=== PATIENT | female | born 1980 ===

== ENCOUNTER → 2020-03-23 09:54 | Outpatient (BNVA) | payer OTHER, SELFPAY | PROVIDERS: PCP Internal Medicine; Referring Provider Internal Medicine; Visit Provider Advanced Practice Midwife | DX: Z76.89 Persons encountering health services in other specified circumstances (principal) ==

== ENCOUNTER 2020-03-23 11:14 | Outpatient (REF) | payer OTHER, SELFPAY ==
[2020-03-31 21:37] LABS: HPV mRNA E6/E7 Not Detected (Not Detected)
== END 2020-03-23 11:15 | disposition home or self-care (01) ==
LOC: HO.LNP 11:14
PROVIDERS: Visit Provider Advanced Practice Midwife
DX: N63.0 Unspecified lump in unspecified breast (principal)
CPT/HCPCS: 87624; 88142

== ENCOUNTER 2020-03-26 11:36 | Outpatient (REF) | payer OTHER, SELFPAY | END 2020-03-26 11:37 | disposition home or self-care (01) | LOC: HO.LAB 11:36 | PROVIDERS: Visit Provider Advanced Practice Midwife | DX: Z13.89 Encounter for screening for other disorder (principal) ==

== ENCOUNTER 2020-03-30 13:47 | Outpatient (REF) | payer OTHER, SELFPAY ==
--- NOTE | 2020-03-30 | MM_ITS ---
EXAMINATION: MM DIAGNOSTIC DIGITAL BREAST TOMOSYNTHESIS, BILATERAL US DIAGNOSTIC ULTRASOUND BREAST, BILATERAL CLINICAL INFORMATION: Due for yearly exam. Clinical exam notes bilateral palpable findings. Prior history reduction mammoplasty 2004. Family history breast cancer in niece. The lifetime risk of breast cancer based on the Tyrer-Cuzick Model is 14%. COMPARISON: Mammography: 09/04/2018, 08/15/2017, 05/18/2009 TECHNIQUE: Digital breast tomosynthesis is performed in both the craniocaudal and mediolateral oblique views along with computer-aided detection (CAD). Synthesized 2D images are generated from the tomosynthesis. Ultrasound bilateral breasts is performed using grayscale imaging and color Doppler without and with harmonics. Exam is targeted to the areas of clinical concern, left breast 6:00 through 11:00 position, or right breast 3:00 through 6:00 position and superior to right nipple. FINDINGS: The breasts are almost entirely fatty (ACR BI-RADS breast composition Category a). Background stromal markings are stable. There is minor scarring and chronic bilateral benign calcifications similar to prior exams and consistent with the remote reduction mammoplasty. Neither breast shows interval mass or architectural abnormality. Again, the right breast has chronic bulky masslike consolidation in area of prior fat necrosis which has contracted over time and corresponds to area of palpable concern anterior 12:00 position. This measures approximately 2.7 x 2.3 x 2.2 cm. Prior measurements in 2008 were 4.0 x 3.5 x 3.8 cm. Again, there are coarse and fine calcifications 12:00 through 2:00 left breast also decreased since 2008. No interval suspicious calcifications in either breast. Ultrasound left breast demonstrates no cystic or solid mass or architectural abnormality. No focal duct ectasia. No skin thickening or edema tracking in soft tissue planes. There is no ultrasound correlate for clinical concern. Ultrasound right breast demonstrates strong posterior acoustic shadowing 12:00 position 1 cm from nipple corresponding to the palpable concern and benign laura fat necrosis on mammography. Remainder of the right breast imaged by ultrasound shows no cystic or solid mass, architectural abnormality, or focal duct ectasia. No skin thickening or edema tracking in soft tissue planes. Results are discussed with the patient at time of visit. IMPRESSION: 1. No mammographic evidence of malignancy. No significant changes from prior studies. 2. Bilateral targeted ultrasound unremarkable. 3. Palpable concern superior to right nipple corresponds to a chronic benign heavily calcified area of prior fat necrosis. No imaging correlate for other sites of palpable concern. ASSESSMENT: BI-RADS 2: Benign RECOMMENDATION: 1. If there is still clinical concern for palpable findings, further evaluation may be considered with surgical consult. Decision to proceed with biopsy should be based on clinical grounds and degree of clinical concern. 2. Otherwise, routine annual screening mammography. This patient's information was entered into a reminder system with a target due date for their next mammogram.
== END 2020-03-30 13:48 | disposition home or self-care (01) ==
LOC: HO.MAMMO 13:47
PROVIDERS: PCP Internal Medicine; Visit Provider Advanced Practice Midwife
DX: N63.23 Unspecified lump in the left breast, lower outer quadrant (principal)
CPT/HCPCS: 76641; 77062; 77066

== ENCOUNTER 2020-08-18 22:08 | Emergency (ER) | payer OTHER, SELFPAY ==
[2020-08-18 23:25] VITALS: BP 150/83; PULSE 75; RESP 16; TEMP 36.4; O2SAT 97; BMI 31.1
[2020-08-18 23:57] LABS: Glucose Urine UA NEG (NEG); Leukocyte Esterase Urine NEG (NEG); Nitrite Urine NEG (NEG); Specific Gravity - Urine 1.025 (1.005-1.025); Urine Blood 2+ (NEG); Urine Ketones NEG (NEG); Urine Protein NEG (NEG-TRACE)
[2020-08-18 23:59] LABS: Appearance Urine CLEAR; Color Urine YELLOW
[2020-08-19 00:06] LABS: UPreg QC Valid YES; Urine Pregnancy NEGATIVE (NEGATIVE)
[2020-08-19 00:11] LABS: Bacteria Urine 1+ /LPF; Mucus Urine 1+ /LPF; Squamous Epithelial Cell Urine 1+ /LPF
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
[2020-08-19] MEDS: Ketorolac Tromethamine 15 MG/ML VIAL IM (01:08)
[2020-08-19] MEDS: Acetaminophen 325 MG TABLET 975 MG PO (01:10)
[2020-08-19] MEDS: Bacitracin Oint 14 GM TUBE 1 APPL TOPICAL (01:17)
== END 2020-08-19 01:45 | disposition home or self-care (01) ==
PROVIDERS: Emergency Provider Student in an Organized Health Care Education/Training Program
DX: T20.19XA Burn of first degree of multiple sites of head, face, and neck, initial encounter (principal); T31.0 Burns involving less than 10% of body surface; V43.62XA Car passenger injured in collision with other type car in traffic accident, initial encounter; W22.12XA Striking against or struck by front passenger side automobile airbag, initial encounter; Y93.89 Activity, other specified; Y92.414 Local residential or business street as the place of occurrence of the external cause; Y99.9 Unspecified external cause status
CPT/HCPCS: 81001; 81025; 90471; 90715; 96372; 99284; J1885

== ENCOUNTER 2020-08-31 12:07 | Outpatient (REF) | payer OTHER, SELFPAY ==
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
== END 2020-08-31 12:08 | disposition home or self-care (01) ==
LOC: HO.XRAY 12:07
PROVIDERS: PCP Internal Medicine; Visit Provider Nurse Practitioner Family
DX: M54.2 Cervicalgia (principal); M54.5 Low back pain; M25.511 Pain in right shoulder; V89.2XXA Person injured in unspecified motor-vehicle accident, traffic, initial encounter
CPT/HCPCS: 70360; 72100; 73030

== ENCOUNTER 2020-09-14 13:14 | Outpatient (REF) | payer OTHER, SELFPAY ==
[2020-09-14 13:27] LABS: COVID-19 Test Positive (Negative); IDNOW Serial# 08D9AD1C
== END 2020-09-14 13:15 | disposition home or self-care (01) ==
LOC: HO.LAB 13:14
PROVIDERS: Visit Provider Internal Medicine
DX: Z20.822 Contact with and (suspected) exposure to COVID-19 (principal)
CPT/HCPCS: 36415; 87635; C9803

== ENCOUNTER 2020-09-15 20:04 | Emergency (ER) | payer OTHER, SELFPAY ==
--- NOTE | ~2020-09-15 | XR_ITS ---
EXAMINATION: XR CHEST CLINICAL INFORMATION: Cough COMPARISON: None TECHNIQUE: Frontal view of the chest was obtained. FINDINGS: There is some right mid lung linear atelectasis present. Otherwise, no significant abnormality is noted involving the heart, lungs, mediastinum, bony thorax or soft tissues. XR/XR chest 1V IMPRESSION: Unremarkable examination. Right midlung atelectasis.
[2020-09-15 21:19] VITALS: BP 122/81; PULSE 109; PULSE 113; RESP 17; RESP 18; TEMP 37.6; O2SAT 97; BMI 32.0
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
[2020-09-15] MEDS: 0.9 % Sodium Chloride 1,000 ML 999 ML IV (22:11)
[2020-09-15 22:17] LABS: Basophils Percent Auto 0.2 % (0-2); Hematocrit 39.9 % (37-47); Hemoglobin 13.2 g/dl (12.0-16.0); Imm Gran Abs Auto 0.01 X10*3/uL (0.00-0.03); Imm Gran Pct Auto 0.2 % (0.0-0.4); Lymphocytes Absolute Auto 1.2 X10*3/uL (1.2-4.9); Lymphocytes Percent Auto 25.9 % (20-40); MANUAL DIFF FLAG NO; Mean Corpuscular HGB Conc 33.1 g/dl (31.0-35.0); Mean Corpuscular Hemoglobin 29.8 pg (27.0-33.0); Mean Corpuscular Volume 90.1 fL (80-98); Mean Platelet Volume 9.1 fL (9.4-12.3); Monocytes Absolute Auto 0.5 X10*3/uL (0.1-1.2); Monocytes Percent Auto 10.6 % (2-11); Neutrophils Absolute Auto 2.8 X10*3/uL (2.0-8.3); Neutrophils Percent Auto 63.1 % (45-73); Platelet Count 236 X10*3/uL (160-400); Red Blood Count 4.43 X10*6/uL (4.20-5.50); Red Cell Distribution Width 12.6 % (11.0-16.0); White Blood Count 4.5 X10*3/uL (4.8-10.8)
[2020-09-15 22:22] LABS: Glucose Urine UA NEG (NEG); Leukocyte Esterase Urine NEG (NEG); Nitrite Urine NEG (NEG); Specific Gravity - Urine >= 1.030 (1.005-1.025); Urine Blood 3+ (NEG); Urine Ketones 15 MG/DL (NEG); Urine Protein NEG (NEG-TRACE)
[2020-09-15 22:28] LABS: Appearance Urine CLEAR; Color Urine YELLOW
[2020-09-15 22:30] LABS: UPreg QC Valid YES; Urine Pregnancy NEGATIVE (NEGATIVE)
[2020-09-15 22:38] LABS: D Dimer < 200 NG/ML
[2020-09-15 22:39] LABS: Alanine Aminotransferase 60 U/L (0-31); Alkaline Phosphatase 72 U/L (39-117); Anion Gap 14 (12-20); Aspartate Amino Transferase 36 U/L (5-31); Bilirubin Total 0.4 mg/dL (0.0-1.0); Blood Urea Nitrogen 9 mg/dL (9-16); Calcium 8.3 mg/dL (8.4-10.2); Carbon Dioxide 25 mmol/L (22-29); Chloride 102 mmol/L (96-108); Creatinine Clr Calc Pharmacy 90.4; Estimated Glomerular Filt Rate > 60; Glucose Random 106 mg/dL (60-115); Potassium 3.4 mmol/L (3.3-5.1); Sodium 138 mmol/L (135-145); Total Protein 7.6 g/dL (6.5-8.0)
[2020-09-15 22:42] LABS: Bacteria Urine 2+ /LPF; Mucus Urine 2+ /LPF; Squamous Epithelial Cell Urine 2+ /LPF
== END 2020-09-15 23:47 | disposition home or self-care (01) ==
PROVIDERS: Emergency Provider Student in an Organized Health Care Education/Training Program; PCP Internal Medicine
DX: U07.1 COVID-19 (principal); A08.39 Other viral enteritis; E86.0 Dehydration
CPT/HCPCS: 36415; 71045; 80053; 81001; 81025; 85025; 85379; 96360; 99284

== ENCOUNTER 2020-09-29 12:08 | Outpatient (REF) | payer OTHER, SELFPAY | END 2020-09-29 12:09 | disposition home or self-care (01) | LOC: HO.LAB 12:08 | PROVIDERS: Visit Provider Internal Medicine | DX: Z20.822 Contact with and (suspected) exposure to COVID-19 (principal) | CPT/HCPCS: C9803; U0003; U0005 ==

== ENCOUNTER 2021-02-16 13:07 | Outpatient (REF) | payer OTHER, SELFPAY ==
[2021-02-16 14:20] LABS: MANUAL DIFF FLAG NO
[2021-02-16 14:23] LABS: Basophils Percent Auto 0.6 % (0-2); Eosinophils Absolute Auto 0.1 X10*3/uL (0.0-0.4); Eosinophils Percent Auto 1.6 % (0-4); Hematocrit 40.1 % (37-47); Hemoglobin 13.1 g/dl (12.0-16.0); Imm Gran Abs Auto 0.02 X10*3/uL (0.00-0.03); Imm Gran Pct Auto 0.3 % (0.0-0.4); Lymphocytes Absolute Auto 2.5 X10*3/uL (1.2-4.9); Lymphocytes Percent Auto 34.6 % (20-40); Mean Corpuscular HGB Conc 32.7 g/dl (31.0-35.0); Mean Corpuscular Hemoglobin 29.7 pg (27.0-33.0); Mean Corpuscular Volume 90.9 fL (80-98); Mean Platelet Volume 10.9 fL (9.4-12.3); Monocytes Absolute Auto 0.5 X10*3/uL (0.1-1.2); Monocytes Percent Auto 6.6 % (2-11); Neutrophils Percent Auto 56.3 % (45-73); Platelet Count 192 X10*3/uL (160-400); Red Blood Count 4.41 X10*6/uL (4.20-5.50); Red Cell Distribution Width 12.8 % (11.0-16.0); White Blood Count 7.1 X10*3/uL (4.8-10.8)
[2021-02-16 14:48] LABS: Alanine Aminotransferase 41 U/L (0-31); Albumin Level 4.1 g/dL (3.5-5.0); Alkaline Phosphatase 66 U/L (39-117); Anion Gap 13 (12-20); Aspartate Amino Transferase 23 U/L (5-31); Bilirubin Total 0.2 mg/dL (0.0-1.0); Blood Urea Nitrogen 11 mg/dL (9-16); Calcium 9.4 mg/dL (8.4-10.2); Carbon Dioxide 26 mmol/L (22-29); Chloride 107 mmol/L (96-108); Cholesterol 172 mg/dL; Estimated Glomerular Filt Rate > 60; Glucose Fasting 102 mg/dL (60-99); HDL Cholesterol 49 mg/dL; LDL Cholesterol Calculated 92 mg/dl; Sodium 142 mmol/L (135-145); Total Protein 7.3 g/dL (6.5-8.0); Triglycerides 158 mg/dL
[2021-02-17 04:25] LABS: HBsAGNum1 0.25 S/CO (0.00-0.99); Hepatitis B Core Antibody Nonreactive (Nonreactive); Hepatitis B Surface Antigen Negative (Negative); ~Hepatitis B Surface Antibody NONREACTIVE (Nonreactive)
[2021-02-17 09:51] LABS: Mumps Virus IgG Antibody <9.00 AU/mL; Rubella IgG Antibody <0.90 Index; Rubeola IgG (Measles) >300.00 AU/mL
[2021-02-19 14:52] LABS: TS Negative Control Passed; TS Panel A 0; TS Panel B 0; TS Positive Control Passed; TSpotTB Negative (SeeBelow)
== END 2021-02-16 13:08 | disposition home or self-care (01) ==
LOC: HO.LAB 13:07
PROVIDERS: Nurse Practitioner Family; PCP Internal Medicine; Visit Provider Internal Medicine
DX: Z01.84 Encounter for antibody response examination (principal); Z11.1 Encounter for screening for respiratory tuberculosis
CPT/HCPCS: 36415; 80053; 80061; 85025; 86481; 86704; 86706; 86735; 86762; 86765; 86787; 87340

== ENCOUNTER 2021-09-16 08:45 | Outpatient (REF) | payer OTHER, SELFPAY ==
--- NOTE | ~2021-09-16 | XR_ITS ---
EXAMINATION: CHEST. LEFT ELBOW. CLINICAL INFORMATION: Dyspnea, short of breath. COMPARISON: None TECHNIQUE: Chest 2 views. Left elbow 4 views. FINDINGS: CHEST: Both lungs are hypoexpanded but clear of acute process. The heart size and pulmonary vascularity is normal. No gross bony abnormality seen. LEFT ELBOW: There is no visible acute fracture, dislocation or subluxation seen. No abnormal joint effusion seen. XR/XR chest 2V IMPRESSION: Unremarkable chest exam. Unremarkable left elbow exam.
--- NOTE | ~2021-09-16 | XR_ITS ---
EXAMINATION: CHEST. LEFT ELBOW. CLINICAL INFORMATION: Dyspnea, short of breath. COMPARISON: None TECHNIQUE: Chest 2 views. Left elbow 4 views. FINDINGS: CHEST: Both lungs are hypoexpanded but clear of acute process. The heart size and pulmonary vascularity is normal. No gross bony abnormality seen. LEFT ELBOW: There is no visible acute fracture, dislocation or subluxation seen. No abnormal joint effusion seen. XR/XR elbow LT 2V IMPRESSION: Unremarkable chest exam. Unremarkable left elbow exam.
[2021-09-16 10:17] LABS: Alanine Aminotransferase 38 U/L (0-31); Albumin Level 4.4 g/dL (3.5-5.0); Alkaline Phosphatase 71 U/L (39-117); Anion Gap 11 (12-20); Aspartate Amino Transferase 21 U/L (5-31); Bilirubin Total 0.3 mg/dL (0.0-1.0); Blood Urea Nitrogen 16 mg/dL (9-16); Calcium 9.4 mg/dL (8.4-10.2); Carbon Dioxide 27 mmol/L (22-29); Chloride 106 mmol/L (96-108); Estimated Glomerular Filt Rate > 60; Glucose Fasting 97 mg/dL (60-99); Potassium 4.2 mmol/L (3.3-5.1); Sodium 140 mmol/L (135-145)
[2021-09-27 12:46] LABS: Chlorpropamide None Detected; Glimepiride None Detected; Glipizide None Detected; Glyburide None Detected; Nateglinide None Detected; Pioglitazone None Detected; Repaglinide None Detected; Rosiglitazone None Detected; Tolazamide None Detected; Tolbutamide None Detected
== END 2021-09-16 08:46 | disposition home or self-care (01) ==
LOC: HO.LAB 08:45
PROVIDERS: PCP Internal Medicine; Visit Provider Internal Medicine
DX: R06.00 Dyspnea, unspecified (principal); M25.522 Pain in left elbow; E16.2 Hypoglycemia, unspecified
CPT/HCPCS: 36415; 71046; 73070; 80053; 80337

== ENCOUNTER 2021-09-26 10:22 | Outpatient (REF) | payer OTHER, SELFPAY ==
--- NOTE | ~2021-09-26 | MM_ITS ---
EXAMINATION: MM SCREENING DIGITAL BREAST TOMOSYNTHESIS, BILATERAL CLINICAL INFORMATION: Screening. Asymptomatic. Remote reduction mammoplasty, 2005. The lifetime risk of breast cancer based on the Tyrer-Cuzick Model is 12%. COMPARISON: Mammography: 03/30/2020, 09/04/2018, 08/15/2017, 05/18/2009 TECHNIQUE: Digital breast tomosynthesis is performed in both the craniocaudal and mediolateral oblique views along with computer-aided detection (CAD). Synthesized 2D images are generated from the tomosynthesis. FINDINGS: The breasts are almost entirely fatty (ACR BI-RADS breast composition Category a). Background stromal markings are stable. There is minor scarring and stable benign coarse and dystrophic calcifications consistent with prior reduction mammoplasty. There is no interval mass or architectural abnormality or abnormal calcifications. The axilla are unremarkable. MM/MM tomosynthesis screening BI IMPRESSION: -No mammographic evidence of malignancy. -Chronic post surgical changes. ASSESSMENT: BI-RADS 2: Benign RECOMMENDATION: Routine annual mammography screening. This patient's information was entered into a reminder system with a target due date for their next mammogram.
== END 2021-09-26 10:23 | disposition home or self-care (01) ==
LOC: HO.MAMMO 10:22
PROVIDERS: Visit Provider Internal Medicine
DX: Z12.31 Encounter for screening mammogram for malignant neoplasm of breast (principal)
CPT/HCPCS: 77063; 77067

== ENCOUNTER 2021-10-20 16:19 | Emergency (ER) | payer OTHER, SELFPAY ==
[2021-10-20 16:49] VITALS: BP 148/99; PULSE 78; RESP 18; TEMP 36.5; O2SAT 99; BMI 32.8
[2021-10-20 17:28] LABS: Influenza A Negative (Negative); Influenza B2 Negative (Negative)
[2021-10-20 17:31] LABS: COVID-19 Test Negative (Negative); IDNOW Serial# 9DB6401D
[2021-10-20 18:46] VITALS: BP 137/89; PULSE 72; RESP 18; O2SAT 99
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
[2021-10-20 19:46] VITALS: BP 123/81; PULSE 75; RESP 16; O2SAT 99
== END 2021-10-20 19:47 | disposition home or self-care (01) ==
PROVIDERS: Emergency Provider Emergency Medicine; PCP Internal Medicine
DX: J06.9 Acute upper respiratory infection, unspecified (principal); Z20.822 Contact with and (suspected) exposure to COVID-19
CPT/HCPCS: 87502; 87635; 99283

== ENCOUNTER 2021-12-27 09:34 | Outpatient (REF) | payer OTHER, SELFPAY ==
[2021-12-27 11:46] LABS: Alanine Aminotransferase 43 U/L (0-31); Albumin Level 4.2 g/dL (3.5-5.0); Alkaline Phosphatase 71 U/L (39-117); Anion Gap 10 (12-20); Aspartate Amino Transferase 23 U/L (5-31); Bilirubin Total 0.3 mg/dL (0.0-1.0); Blood Urea Nitrogen 12 mg/dL (9-16); Calcium 9.2 mg/dL (8.4-10.2); Carbon Dioxide 27 mmol/L (22-29); Chloride 107 mmol/L (96-108); Cholesterol 178 mg/dL; Estimated Glomerular Filt Rate > 60; Glucose Fasting 93 mg/dL (60-99); HDL Cholesterol 49 mg/dL; LDL Cholesterol Calculated 103 mg/dl; Potassium 4.1 mmol/L (3.3-5.1); Sodium 140 mmol/L (135-145); Total Protein 7.6 g/dL (6.5-8.0); Triglycerides 134 mg/dL
== END 2021-12-27 09:35 | disposition home or self-care (01) ==
LOC: HO.LAB 09:34
PROVIDERS: PCP Internal Medicine; Visit Provider Internal Medicine
DX: Z00.00 Encounter for general adult medical examination without abnormal findings (principal)
CPT/HCPCS: 36415; 80053; 80061

== ENCOUNTER 2022-02-01 11:09 | Outpatient (REF) | payer OTHER, SELFPAY ==
[2022-02-01 12:34] LABS: Influenza A PCR NEGATIVE (Negative); Influenza B PCR NEGATIVE (Negative); Resp Syncy Virus RNA Qual PCR NEGATIVE (Negative); SARS COV2 PCR INHOUSE NEGATIVE (Negative)
== END 2022-02-01 11:10 | disposition home or self-care (01) ==
LOC: HO.LNP 11:09
PROVIDERS: Visit Provider Family Medicine
DX: Z20.822 Contact with and (suspected) exposure to COVID-19 (principal); B34.9 Viral infection, unspecified
CPT/HCPCS: 0241U

== ENCOUNTER 2022-05-16 11:02 | Emergency (ER) | payer OTHER, SELFPAY ==
--- NOTE | ~2022-05-16 | XR_ITS ---
EXAMINATION: XR CHEST CLINICAL INFORMATION: Shortness of breath COMPARISON: 09/16/2021 TECHNIQUE: 2 views of the chest were obtained. FINDINGS: Normal symmetric lung volumes. No parenchymal consolidation. No pleural effusion. No pneumothorax. Cardiomediastinal silhouette and pulmonary vascularity are within normal limits. No acute osseous abnormalities. XR/XR chest 2V IMPRESSION: No acute findings
[2022-05-16 11:23] VITALS: BP 113/81; PULSE 88; RESP 18; TEMP 36.6; O2SAT 99; BMI 33.5
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
[2022-05-16 12:35] LABS: Influenza A PCR NEGATIVE (Negative); Influenza B PCR NEGATIVE (Negative); Resp Syncy Virus RNA Qual PCR NEGATIVE (Negative); SARS COV2 PCR INHOUSE NEGATIVE (Negative)
--- OUTSIDE RECORDS SUMMARY | 2022-05-16 13:59 | XMS_ITS | Continuity of Care Document ---
:1980 Author Organization [facility] Address [address] [place] [id number]- Care Team Providers Name Role Phone Alexandre Stout MD, Aydee Smith Primary Care Physician Encounter [facility] Date(s): 11/30/21 - 12/30/21 [facility] [address] [place] [id number] Attending Physician: Durga Cerda Admitting Physician: Durga Cerda Referring Physician: AdmtrDurga Allergies, Adverse Reactions, Alerts No Known Allergies Medications Omeprazole By Mouth, Daily, PRN, 0 Refills, Maintenance, 11/30/21 10:48:00 EDT, Partial fill upon patient request if the prescription is for a schedule II opioid drug. Start Date: 11/30/21 Status: Ordered
--- OUTSIDE RECORDS SUMMARY | 2022-05-16 13:59 | XMS_ITS | Continuity of Care Document ---
:1980 Author Organization [facility] Address [address] [place] [id number]- Care Team Providers Name Role Phone Po Aurelia ESPINOSA Primary Care Physician Encounter [facility] Date(s): 07/11/21 - 08/10/21 [facility] [address] [place] [id number] Attending Physician: Durga Cerda Admitting Physician: Durga Cerda Referring Physician: Durga Cerda
--- OUTSIDE RECORDS SUMMARY | 2022-05-16 14:00 | XMS_ITS | Continuity of Care Document ---
:1980 Author Organization [facility] Address [address] [place] [id number]- Care Team Providers Name Role Phone Aydee Dong MD Primary Care Physician Encounter [facility] Date(s): 07/11/21 - 02/22/22 [facility] [address] [place], [place] [address] Discharge Disposition: A-D/C Home Attending Physician: Karen Russo MD Admitting Physician: Karen Russo MD Referring Physician: Aydee Dong MD Allergies, Adverse Reactions, Alerts No Known Allergies Medications Omeprazole By Mouth, Daily, PRN, 0 Refills, Maintenance, 11/30/21 10:48:00 EDT, Partial fill upon patient request if the prescription is for a schedule II opioid drug. Start Date: 11/30/21 Status: Ordered Care Team PersonnelName: Aydee Dong MD Address: [address] [place] [address]-
== END 2022-05-16 15:27 | disposition home or self-care (01) ==
PROVIDERS: Student in an Organized Health Care Education/Training Program; Emergency Provider Emergency Medicine; PCP Internal Medicine
DX: J06.9 Acute upper respiratory infection, unspecified (principal); R06.02 Shortness of breath; R05.9 Cough, unspecified; Z20.822 Contact with and (suspected) exposure to COVID-19; Z79.899 Other long term (current) drug therapy
CPT/HCPCS: 0241U; 71046; 99282; 99283

== ENCOUNTER 2022-08-21 12:56 | Outpatient (REF) | payer OTHER, SELFPAY ==
[2022-08-21 18:00] LABS: CT PCR NOT DETECTED (Not Detect.); NG PCR NOT DETECTED (Not Detect.)
== END 2022-08-21 12:57 | disposition home or self-care (01) ==
LOC: HO.LNP 12:56
PROVIDERS: PCP Internal Medicine; Visit Provider Advanced Practice Midwife
DX: Z20.2 Contact with and (suspected) exposure to infections with a predominantly sexual mode of transmission (principal); N92.6 Irregular menstruation, unspecified
CPT/HCPCS: 0353U

== ENCOUNTER → 2022-09-07 15:53 | Outpatient (BNVA) | payer OTHER, SELFPAY | PROVIDERS: PCP Internal Medicine; Visit Provider Nurse Practitioner Family | DX: K21.9 Gastro-esophageal reflux disease without esophagitis (principal); K58.2 Mixed irritable bowel syndrome; R14.0 Abdominal distension (gaseous) | CPT/HCPCS: 99202 ==

== ENCOUNTER 2022-09-08 11:38 | Outpatient (REF) | payer OTHER, SELFPAY ==
[2022-09-08 12:28] LABS: Estimated Average Glucose 143 mg/dL; Hemoglobin A1c % 6.6 %
[2022-09-08 12:58] LABS: Syphilis Screen Nonreactive (Nonreactive)
[2022-09-08 13:07] LABS: Alanine Aminotransferase 85 U/L (0-31); Albumin Level 4.3 g/dL (3.5-5.0); Alkaline Phosphatase 83 U/L (39-117); Aspartate Amino Transferase 49 U/L (5-31); Bilirubin Direct < 0.2 mg/dL (0.0-0.5); Bilirubin Total 0.3 mg/dL (0.0-1.0); Lipase 38 U/L (8-78); Total Protein 7.5 g/dL (6.5-8.0)
[2022-09-08 13:10] LABS: Folate 14.4 ng/mL (> or = 4.0); TSH reflex Free T4 0.73 uIU/mL (0.32-4.0); Vitamin B12 472 pg/mL (200-900)
[2022-09-09 11:32] LABS: H Pylori Breath Test Positive (Negative)
[2022-09-11 08:39] LABS: HBc Num1 0.15 S/CO (0.00-0.79); HIV AB/AG Nonreactive (Nonreactive); HIV Num 1 0.12 S/CO (0.00-0.99); Hepatitis B Core Antibody Nonreactive (Nonreactive); ~HepC Num1 0.14 S/CO (0.00-0.79); ~Hepatitis C Antibody Nonreactive (Nonreactive)
[2022-09-11 17:44] LABS: Transglutaminase Ab IgG <1.0 U/mL; Transglutaminase IgA <1.0 U/mL
[2022-09-14 07:58] LABS: Vitamin D 25-OH, D2 <4 ng/mL; Vitamin D 25-OH, D3 15 ng/mL; Vitamin D 25-OH, Total 15 ng/mL (30-100)
== END 2022-09-08 11:39 | disposition home or self-care (01) ==
LOC: HO.LAB 11:38
PROVIDERS: Advanced Practice Midwife; PCP Internal Medicine; Visit Provider Nurse Practitioner Family
DX: Z11.4 Encounter for screening for human immunodeficiency virus [HIV] (principal); R19.7 Diarrhea, unspecified; R10.9 Unspecified abdominal pain; K59.00 Constipation, unspecified; E55.9 Vitamin D deficiency, unspecified; Z20.2 Contact with and (suspected) exposure to infections with a predominantly sexual mode of transmission; Z83.3 Family history of diabetes mellitus
CPT/HCPCS: 36415; 80076; 82306; 82607; 82746; 83013; 83036; 83690; 84443; 86364; 86704; 86780; 86803; 87389; 99211

== ENCOUNTER 2022-10-02 09:49 | Outpatient (REF) | payer OTHER, SELFPAY ==
--- NOTE | ~2022-10-02 | MM_ITS ---
EXAMINATION: MM SCREENING DIGITAL BREAST TOMOSYNTHESIS, BILATERAL CLINICAL INFORMATION: Screening. Asymptomatic. Prior remote reduction mammoplasty, 2004. The lifetime risk of breast cancer based on the Tyrer-Cuzick Model is 7%. COMPARISON: Multiple prior exams, most recent 09/26/2021 TECHNIQUE: Digital breast tomosynthesis is performed in both the craniocaudal and mediolateral oblique views along with computer-aided detection (CAD). Synthesized 2D images are generated from the tomosynthesis. FINDINGS: The breasts are almost entirely fatty (ACR BI-RADS breast composition Category a). There is minor bilateral scarring and benign bilateral coarse and dystrophic calcifications consistent with the prior remote reduction mammoplasty. No interval architectural abnormality or developing density. There are no significant masses, abnormal calcifications, or other abnormalities. The axilla are unremarkable. MM/MM tomosynthesis screening BI IMPRESSION: No mammographic evidence of malignancy. ASSESSMENT: BI-RADS 2: Benign RECOMMENDATION: Routine annual mammography screening. This patient's information was entered into a reminder system with a target due date for their next mammogram.
== END 2022-10-02 09:50 | disposition home or self-care (01) ==
LOC: HO.MAMMO 09:49
PROVIDERS: PCP Internal Medicine; Visit Provider Internal Medicine
DX: Z12.31 Encounter for screening mammogram for malignant neoplasm of breast (principal)
CPT/HCPCS: 77063; 77067

== ENCOUNTER 2023-01-04 10:01 | Outpatient (AMB) | payer OTHER, SELFPAY ==
[2023-01-04 10:05] VITALS: BP 118/70; BMI 33.8
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
== END 2023-01-04 10:42 | disposition home or self-care (01) ==
PROVIDERS: PCP Internal Medicine; Visit Provider Internal Medicine
DX: Z00.00 Encounter for general adult medical examination without abnormal findings (principal)
CPT/HCPCS: 99396

== ENCOUNTER 2023-01-04 10:34 | Outpatient (REF) | payer OTHER, SELFPAY ==
--- NOTE | 2023-01-04 10:42 | ECG_ITS ---
Test Reason : CHEST PAIN Blood Pressure : / mmHG Vent. Rate : 055 BPM Atrial Rate : 055 BPM P-R Int : 142 ms QRS Dur : 074 ms QT Int : 424 ms P-R-T Axes : 021 003 030 degrees QTc Int : 405 ms Sinus bradycardia with sinus arrhythmia Otherwise normal ECG When compared with ECG of 03-OCT-2015 04:44, No significant change was found Referred By: Aydee Stout Electronically Signed By:DALE SAXENA MD
[2023-01-04 13:27] LABS: Alanine Aminotransferase 68 U/L (0-31); Albumin Level 4.1 g/dL (3.5-5.0); Alkaline Phosphatase 82 U/L (39-117); Anion Gap 16 (12-20); Aspartate Amino Transferase 43 U/L (5-31); Bilirubin Total 0.3 mg/dL (0.0-1.0); Blood Urea Nitrogen 10 mg/dL (9-16); Calcium 9.6 mg/dL (8.4-10.2); Carbon Dioxide 22 mmol/L (22-29); Chloride 106 mmol/L (96-108); Cholesterol 197 mg/dL; Estimated Glomerular Filt Rate > 60; Glucose Fasting 100 mg/dL (60-99); HDL Cholesterol 59 mg/dL; LDL Cholesterol Calculated 110 mg/dl; Potassium 4.2 mmol/L (3.3-5.1); Sodium 140 mmol/L (135-145); Total Protein 7.9 g/dL (6.5-8.0); Triglycerides 144 mg/dL
[2023-01-04 13:46] LABS: Thyroid Stimulating Hormone 1.09 uIU/mL (0.32-4.0)
== END 2023-01-04 10:35 | disposition home or self-care (01) ==
LOC: HO.LAB 10:34
PROVIDERS: PCP Internal Medicine; Visit Provider Internal Medicine
DX: R07.9 Chest pain, unspecified (principal); E78.5 Hyperlipidemia, unspecified; K21.9 Gastro-esophageal reflux disease without esophagitis; E66.9 Obesity, unspecified; Z68.31 Body mass index [BMI] 31.0-31.9, adult; E55.9 Vitamin D deficiency, unspecified
CPT/HCPCS: 36415; 80053; 80061; 82306; 84443; 93005

== ENCOUNTER → 2023-01-04 10:42 | Outpatient (BNV) | payer OTHER, SELFPAY | PROVIDERS: PCP Internal Medicine; Visit Provider Internal Medicine Cardiovascular Disease | DX: R07.9 Chest pain, unspecified (principal) | CPT/HCPCS: 93010 ==

== ENCOUNTER → 2023-04-05 09:50 | Outpatient (BNVA) | payer OTHER, SELFPAY | PROVIDERS: PCP Internal Medicine; Visit Provider Physician Assistant Medical | DX: S63.637A Sprain of interphalangeal joint of left little finger, initial encounter (principal); W50.2XXA Accidental twist by another person, initial encounter | CPT/HCPCS: 29130; 99203 ==

== ENCOUNTER → 2023-04-10 13:10 | Outpatient (BNVA) | payer OTHER, SELFPAY | PROVIDERS: PCP Internal Medicine; Visit Provider Physician Assistant Medical | DX: S63.637A Sprain of interphalangeal joint of left little finger, initial encounter (principal); W50.2XXA Accidental twist by another person, initial encounter | CPT/HCPCS: 99213 ==

== ENCOUNTER 2023-04-20 08:29 | Outpatient (AMB) | payer OTHER, SELFPAY ==
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
[2023-04-20 08:35] VITALS: BP 118/74; PULSE 110; TEMP 36.7; O2SAT 97; BMI 33.3
== END 2023-04-20 09:05 | disposition home or self-care (01) ==
PROVIDERS: PCP Internal Medicine; Visit Provider Internal Medicine
DX: K57.92 Diverticulitis of intestine, part unspecified, without perforation or abscess without bleeding (principal); R11.0 Nausea; G44.201 Tension-type headache, unspecified, intractable; R68.89 Other general symptoms and signs; R53.83 Other fatigue
CPT/HCPCS: 99214

== ENCOUNTER → 2023-04-20 13:07 | Outpatient (BNVA) | payer OTHER, SELFPAY | PROVIDERS: PCP Internal Medicine; Visit Provider Physician Assistant Medical | DX: S63.637D Sprain of interphalangeal joint of left little finger, subsequent encounter (principal); W50.2XXD Accidental twist by another person, subsequent encounter | CPT/HCPCS: 99213 ==

== ENCOUNTER 2023-04-21 09:03 | Outpatient (AMB) | payer OTHER, SELFPAY ==
[2023-04-21 09:07] VITALS: BP 100/70; PULSE 99; TEMP 36.5; O2SAT 98; BMI 33.3
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
== END 2023-04-21 09:39 | disposition home or self-care (01) ==
PROVIDERS: PCP Internal Medicine; Visit Provider Physician Assistant
DX: R10.32 Left lower quadrant pain (principal)
CPT/HCPCS: 99051; 99213

== ENCOUNTER 2023-04-23 09:15 | Emergency (ER) | payer OTHER, SELFPAY ==
--- NOTE | ~2023-04-23 | CT_ITS ---
EXAMINATION: CT ABDOMEN AND PELVIS WITH CONTRAST CLINICAL INFORMATION: Left lower quadrant pain. History of diverticulitis. COMPARISON: Abdominal ultrasound 09/06/2015 TECHNIQUE: Multidetector volumetric images were obtained from the superior aspect of the liver through the pubic symphysis following administration 85 mL of Omnipaque 350 intravenous contrast. Sagittal and coronal reformatted images were obtained on the technologist's workstation. This CT examination was performed using dose optimization techniques as appropriate, variously including the following: *Automated exposure control *Adjustment of mA and/or kV according to patient size (this includes techniques or standardized protocols for targeted exams where dose is matched to indication/reason for exam; i.e. extremities or head) *Use of iterative reconstruction technique DLP: 623 mGy-cm FINDINGS: Visualized lung bases demonstrate mild dependent atelectasis. Partially visualized calcification within the left breast. The liver is normal in size but demonstrates diffusely decreased attenuation. The gallbladder is surgically absent. The pancreas is normal in appearance. The spleen is mildly enlarged measuring 12.6 cm in maximum AP dimension. The adrenal glands are unremarkable. Symmetrically enhancing kidneys. There is no hydronephrosis of either kidney. There are a few small hypodense lesions each kidney, some of which demonstrate cystic characteristics but most are too small to accurately characterize. Largest definitive left renal cyst measures approximately 1 cm. Normal caliber loops of small and large bowel. Normal appendix. Mild colonic diverticulosis. Minimal pericolonic stranding adjacent to the proximal sigmoid colon. No complicating abscess. Normal caliber abdominal aorta. Circumaortic left renal vein. No retroperitoneal lymphadenopathy. The bladder is decompressed and therefore not accurately evaluated. Unremarkable CT appearance of the uterus. No gross free pelvic fluid. No inguinal lymphadenopathy. Mild diffuse degenerative changes of the spine. CT/CT abdomen pelvis w IV con IMPRESSION: 1. Mild colonic diverticulosis with minimal pericolonic stranding adjacent to the proximal sigmoid colon. This is a nonspecific finding but most suggestive of active diverticulitis. No complicating abscess. 2. Diffusely decreased liver attenuation suggesting hepatic steatosis. Correlation with liver enzymes recommended. 3. Mild splenomegaly. Fleischner guidelines were followed.
[2023-04-23 09:22] VITALS: BP 140/95; PULSE 101; RESP 18; TEMP 36.1; O2SAT 98; BMI 34.0
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
[2023-04-23 09:38] LABS: MANUAL DIFF FLAG NO
[2023-04-23 09:40] LABS: Basophils Percent Auto 0.6 % (0-2); Eosinophils Absolute Auto 0.1 X10*3/uL (0.0-0.4); Eosinophils Percent Auto 0.7 % (0-4); Hematocrit 43.7 % (37.0-47.0); Hemoglobin 14.6 g/dl (12.0-16.0); Imm Gran Abs Auto 0.02 X10*3/uL (0.00-0.03); Imm Gran Pct Auto 0.3 % (0.0-0.4); Lymphocytes Absolute Auto 2.3 X10*3/uL (1.2-4.9); Lymphocytes Percent Auto 32.3 % (20-40); Mean Corpuscular HGB Conc 33.4 g/dl (31.0-35.0); Mean Corpuscular Hemoglobin 30.1 pg (27.0-33.0); Mean Corpuscular Volume 90.1 fL (80.0-98.0); Mean Platelet Volume 8.8 fL (9.4-12.3); Monocytes Absolute Auto 0.5 X10*3/uL (0.1-1.2); Monocytes Percent Auto 7.6 % (2-11); Neutrophils Absolute Auto 4.1 x10*3/uL (2.0-8.3); Neutrophils Percent Auto 58.5 % (45-73); Platelet Count 331 X10*3/uL (160-400); Red Blood Count 4.85 X10*6/uL (4.20-5.50); Red Cell Distribution Width 11.8 % (11.0-16.0); White Blood Count 7.1 X10*3/uL (4.8-10.8)
[2023-04-23 09:54] LABS: Alanine Aminotransferase 71 U/L (0-31); Albumin Level 4.4 g/dL (3.5-5.0); Alkaline Phosphatase 75 U/L (39-117); Anion Gap 18 (12-20); Aspartate Amino Transferase 64 U/L (5-31); Bilirubin Direct 0.2 mg/dL (0.0-0.5); Bilirubin Total 0.4 mg/dL (0.0-1.0); Blood Urea Nitrogen 12 mg/dL (9-16); Calcium 9.7 mg/dL (8.4-10.2); Carbon Dioxide 24 mmol/L (22-29); Chloride 101 mmol/L (96-108); Creatinine Clr Calc Pharmacy 84.1; Estimated Glomerular Filt Rate > 60; Glucose Random 91 mg/dL (60-115); Lipase 35 U/L (8-78); Potassium 3.7 mmol/L (3.3-5.1); Sodium 139 mmol/L (135-145); Total Protein 9.1 g/dL (6.5-8.0)
[2023-04-23 09:59] LABS: HCG Quantitative 4 mIU/mL
[2023-04-23] MEDS: ondansetron HCL 4 MG/2 ML VIAL IVPUSH (10:04)
[2023-04-23] MEDS: Ketorolac Tromethamine 15 MG/ML VIAL IVPUSH (10:04)
[2023-04-23] MEDS: 0.9 % Sodium Chloride 1,000 ML 999 ML IV ×2 (10:06→10:20)
[2023-04-23] MEDS: iohexoL 350 MG/ML 100 ML INFUS..BTL IV (10:21)
[2023-04-23 10:59] VITALS: BP 122/81; PULSE 74; RESP 18; TEMP 36.6; O2SAT 99
[2023-04-23 11:26] LABS: Appearance Urine Clear; Color Urine Yellow; Glucose Urine UA Negative (Negative); Leukocyte Esterase Urine Negative (Negative); Nitrite Urine Negative (Negative); Specific Gravity - Urine >= 1.030 (1.005-1.025); UMIC TRIGGER UACC YES; Urine Blood Moderate (2+) (Negative); Urine Ketones 15 mg/dL (Negative); Urine Protein Negative (Neg-Trace)
[2023-04-23 11:41] LABS: Bacteria Urine None Seen (None Seen); Hyaline Casts Urine 0-2 /LPF (0-2); Squamous Epithelial Cell Urine 0-2 /HPF (0-2); WBC Urine 0-5 /HPF (0-5)
[2023-04-23 11:54] LABS: Lactic Acid 1.1 mmol/L (0.5-2.0)
[2023-04-23] MEDS: Piperacillin Sodium/Tazobactam 3.375 GM in 0.9 % Sodium Chloride 50 ML IV (12:11)
[2023-04-23 12:12] VITALS: BP 110/72; PULSE 81; RESP 19; O2SAT 98
--- NOTE | 2023-04-23 12:14 | PC.NURSE ---
no pqain, tolerated trini annalisa. nad, skin wpd
== END 2023-04-23 13:19 | disposition home or self-care (01) ==
PROVIDERS: Emergency Provider Emergency Medicine; PCP Internal Medicine
DX: K57.92 Diverticulitis of intestine, part unspecified, without perforation or abscess without bleeding (principal); R10.32 Left lower quadrant pain; R11.2 Nausea with vomiting, unspecified; R19.7 Diarrhea, unspecified; Z79.899 Other long term (current) drug therapy
CPT/HCPCS: 36415; 74177; 80048; 80076; 81001; 83605; 83690; 84702; 85025; 87040; 96374; 96375; 99284; J1885; J2405; J2543; Q9967

== ENCOUNTER 2023-04-25 14:00 | Outpatient (AMB) | payer OTHER, SELFPAY ==
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
[2023-04-25 14:05] VITALS: BP 108/80; BMI 33.1
== END 2023-04-25 14:39 | disposition home or self-care (01) ==
PROVIDERS: PCP Internal Medicine; Visit Provider Internal Medicine
DX: K57.92 Diverticulitis of intestine, part unspecified, without perforation or abscess without bleeding (principal); Z88.9 Allergy status to unspecified drugs, medicaments and biological substances; N91.2 Amenorrhea, unspecified; R11.0 Nausea
CPT/HCPCS: 99214

== ENCOUNTER → 2023-05-01 11:17 | Outpatient (BNVA) | payer OTHER, SELFPAY | PROVIDERS: PCP Internal Medicine; Visit Provider Physician Assistant Medical | DX: S06.1X0A Traumatic cerebral edema without loss of consciousness, initial encounter (principal); X58.XXXA Exposure to other specified factors, initial encounter | CPT/HCPCS: 99203 ==

== ENCOUNTER → 2023-05-08 09:09 | Outpatient (BNVA) | payer OTHER, SELFPAY | PROVIDERS: PCP Internal Medicine; Visit Provider Physician Assistant Medical | DX: S63.637D Sprain of interphalangeal joint of left little finger, subsequent encounter (principal); W50.2XXD Accidental twist by another person, subsequent encounter | CPT/HCPCS: 99213 ==

== ENCOUNTER 2023-05-11 09:11 | Outpatient (AMB) | payer OTHER, SELFPAY ==
[2023-05-11 09:44] VITALS: BP 116/68; BMI 33.1
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
== END 2023-05-11 10:11 | disposition home or self-care (01) ==
LOC: HO.HWS 09:11
PROVIDERS: PCP Internal Medicine; Visit Provider Advanced Practice Midwife
DX: N91.2 Amenorrhea, unspecified (principal); R23.2 Flushing; N89.8 Other specified noninflammatory disorders of vagina; Z32.02 Encounter for pregnancy test, result negative
CPT/HCPCS: 99214

== ENCOUNTER 2023-05-11 09:11 | Outpatient (REF) | payer OTHER, SELFPAY | END 2023-05-11 09:12 | disposition home or self-care (01) | LOC: HO.LNP 09:11 | PROVIDERS: PCP Internal Medicine; Visit Provider Advanced Practice Midwife | DX: Z32.02 Encounter for pregnancy test, result negative (principal); N91.2 Amenorrhea, unspecified; R23.2 Flushing; N89.8 Other specified noninflammatory disorders of vagina | CPT/HCPCS: 81025; 99212 ==

== ENCOUNTER 2023-05-11 10:15 | Outpatient (REF) | payer OTHER, SELFPAY ==
[2023-05-11 18:46] LABS: CT PCR NOT DETECTED (Not Detect.); NG PCR NOT DETECTED (Not Detect.)
[2023-05-12 07:59] LABS: Follicle Stimulating Hormone 10.2 mIU/mL
[2023-05-13 14:30] LABS: BV Int Neg Control Negative (Negative); BV Int Pos Control Positive (Positive)
== END 2023-05-11 10:16 | disposition home or self-care (01) ==
LOC: HO.LAB 10:15
PROVIDERS: PCP Internal Medicine; Visit Provider Advanced Practice Midwife
DX: R23.2 Flushing (principal); N91.2 Amenorrhea, unspecified
CPT/HCPCS: 0353U; 83001; 87480; 87510; 87660

== ENCOUNTER 2023-05-16 11:30 | Outpatient (RCR) | payer OTHER, SELFPAY ==
--- NOTE | 2023-05-16 12:02 | MHC.OT.DC ---
[address] [phone] F: [phone] Occupational Therapy Discharge Note Patient Name: Jennifer Laura Provider: Kelly Parham Diagnosis: Left 5th digit DIP sprain Date of Surgery: Date of Evaluation: 04/13/23 Date of Discharge: 05/16/23 Treatments to Date: 3 Cancellations to Date: 5 No Shows to Date: Discharge Status: Achieved Goals Improved Function Independent with HEP Discharge Summary: Pt reports a long lapse in treatment due to illness. Today she presents with a pain free left small finger with AROM WNL , digit to DPC. 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 Goals met Electronically Signed By: Gail Leon OT CHT CLT Reviewed/agree with student documentation: Therapist: Please Sign and return to therapist, thank you for your referral.
== END 2023-05-16 12:02 | disposition home or self-care (01) ==
LOC: HO.OT 11:30
PROVIDERS: PCP Internal Medicine; Visit Provider Physician Assistant Medical
DX: S63.637D Sprain of interphalangeal joint of left little finger, subsequent encounter (principal)
CPT/HCPCS: 97110; 97165

== ENCOUNTER → 2023-05-23 09:44 | Outpatient (BNVA) | payer OTHER, SELFPAY | PROVIDERS: PCP Internal Medicine; Visit Provider Physician Assistant Medical | DX: S63.637D Sprain of interphalangeal joint of left little finger, subsequent encounter (principal); W50.2XXD Accidental twist by another person, subsequent encounter | CPT/HCPCS: 99213 ==

== ENCOUNTER 2023-05-25 11:04 | Outpatient (REF) | payer OTHER, SELFPAY ==
[2023-05-25 12:54] LABS: HCG Quantitative 3 mIU/mL
[2023-05-26 15:02] LABS: DHEA Sulfate 98 mcg/dL (15-205); Prolactin 3.6 ng/mL
[2023-05-31 13:32] LABS: Testosterone, Free 2.1 pg/mL (0.1-6.4); Testosterone, Total 15 ng/dL (2-45)
== END 2023-05-25 11:05 | disposition home or self-care (01) ==
LOC: HO.LAB 11:04
PROVIDERS: PCP Internal Medicine; Visit Provider Advanced Practice Midwife
DX: N91.2 Amenorrhea, unspecified (principal); N92.6 Irregular menstruation, unspecified
CPT/HCPCS: 36415; 82627; 83498; 84146; 84402; 84403; 84702; 99212

== ENCOUNTER 2023-05-25 11:04 | Outpatient (AMB) | payer OTHER, SELFPAY ==
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
[2023-05-25 11:29] VITALS: BP 118/70; BMI 33.1
== END 2023-05-25 11:57 | disposition home or self-care (01) ==
PROVIDERS: PCP Internal Medicine; Visit Provider Advanced Practice Midwife
DX: N91.2 Amenorrhea, unspecified (principal)
CPT/HCPCS: 99213

== ENCOUNTER 2023-06-06 12:36 | Outpatient (AMB) | payer OTHER, SELFPAY ==
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
== END 2023-06-06 13:34 | disposition home or self-care (01) ==
LOC: HO.HWS 12:36
PROVIDERS: PCP Internal Medicine; Visit Provider Advanced Practice Midwife
DX: N91.2 Amenorrhea, unspecified (principal); Z71.2 Person consulting for explanation of examination or test findings
CPT/HCPCS: 99213

== ENCOUNTER → 2023-06-06 12:36 | Outpatient (BNVA) | payer OTHER, SELFPAY | PROVIDERS: PCP Internal Medicine; Visit Provider Advanced Practice Midwife ==

== ENCOUNTER → 2023-06-19 15:47 | Outpatient (BNVA) | payer OTHER, SELFPAY | PROVIDERS: PCP Internal Medicine; Visit Provider Nurse Practitioner Family | DX: R10.32 Left lower quadrant pain (principal); K21.9 Gastro-esophageal reflux disease without esophagitis; R19.6 Halitosis; R14.0 Abdominal distension (gaseous); Z86.19 Personal history of other infectious and parasitic diseases | CPT/HCPCS: 99212 ==

== ENCOUNTER 2023-07-10 10:28 | Outpatient (REF) | payer OTHER, SELFPAY ==
[2023-07-12 13:59] LABS: H Pylori Breath Test Negative (Negative)
== END 2023-07-10 10:29 | disposition home or self-care (01) ==
LOC: HO.LNP 10:28
PROVIDERS: Visit Provider Nurse Practitioner Family
DX: Z11.0 Encounter for screening for intestinal infectious diseases (principal)
CPT/HCPCS: 83013

== ENCOUNTER 2023-07-10 15:18 | Outpatient (AMB) | payer OTHER, SELFPAY ==
[2023-07-10 15:22] VITALS: BP 118/74; PULSE 98; BMI 32.7
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
== END 2023-07-10 16:33 | disposition home or self-care (01) ==
PROVIDERS: PCP Internal Medicine; Visit Provider Nurse Practitioner Family
DX: K21.9 Gastro-esophageal reflux disease without esophagitis (principal); R19.6 Halitosis; Z86.19 Personal history of other infectious and parasitic diseases; R14.0 Abdominal distension (gaseous)
CPT/HCPCS: 99214

== ENCOUNTER → 2023-07-10 15:18 | Outpatient (BNVA) | payer OTHER, SELFPAY | PROVIDERS: PCP Internal Medicine; Visit Provider Nurse Practitioner Family | DX: R19.6 Halitosis (principal); K21.9 Gastro-esophageal reflux disease without esophagitis; R14.0 Abdominal distension (gaseous); Z86.19 Personal history of other infectious and parasitic diseases | CPT/HCPCS: 99212 ==

== ENCOUNTER 2023-08-07 08:43 | Outpatient (AMB) | payer OTHER, SELFPAY ==
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
[2023-08-07 09:45] VITALS: BP 114/80; PULSE 85; TEMP 36.6; O2SAT 97
== END 2023-08-07 10:20 | disposition home or self-care (01) ==
PROVIDERS: PCP Internal Medicine; Visit Provider Nurse Practitioner Primary Care
DX: J18.9 Pneumonia, unspecified organism (principal)
CPT/HCPCS: 87880; 99213

== ENCOUNTER 2023-08-07 09:55 | Outpatient (REF) | payer OTHER, SELFPAY ==
--- NOTE | ~2023-08-07 | XR_ITS ---
EXAMINATION: XR CHEST CLINICAL INFORMATION: Respiratory disorder COMPARISON: 05/16/2022 TECHNIQUE: 2 views of the chest were obtained. FINDINGS: No significant abnormality is noted involving the heart, lungs, mediastinum, bony thorax or soft tissues. XR/XR chest 2V IMPRESSION: Unremarkable examination with no interval change.
[2023-08-07 13:18] LABS: MANUAL DIFF FLAG NO
[2023-08-07 13:34] LABS: Alanine Aminotransferase 39 U/L (0-31); Albumin Level 4.2 g/dL (3.5-5.0); Alkaline Phosphatase 84 U/L (39-117); Anion Gap 14 (12-20); Aspartate Amino Transferase 29 U/L (5-31); Bilirubin Total 0.4 mg/dL (0.0-1.0); Blood Urea Nitrogen 10 mg/dL (9-16); Calcium 9.7 mg/dL (8.4-10.2); Carbon Dioxide 27 mmol/L (22-29); Chloride 105 mmol/L (96-108); Estimated Glomerular Filt Rate > 60; Glucose Random 93 mg/dL (60-115); Potassium 3.8 mmol/L (3.3-5.1); Sodium 142 mmol/L (135-145); Total Protein 8.3 g/dL (6.5-8.0)
[2023-08-07 13:38] LABS: Basophils Percent Auto 0.5 % (0-2); Eosinophils Absolute Auto 0.2 X10*3/uL (0.0-0.4); Eosinophils Percent Auto 2.1 % (0-4); Hematocrit 41.2 % (37.0-47.0); Hemoglobin 13.4 g/dl (12.0-16.0); Imm Gran Abs Auto 0.05 X10*3/uL (0.00-0.03); Imm Gran Pct Auto 0.6 % (0.0-0.4); Lymphocytes Absolute Auto 2.8 X10*3/uL (1.2-4.9); Lymphocytes Percent Auto 31.5 % (20-40); Mean Corpuscular HGB Conc 32.5 g/dl (31.0-35.0); Mean Corpuscular Hemoglobin 29.6 pg (27.0-33.0); Mean Corpuscular Volume 90.9 fL (80.0-98.0); Mean Platelet Volume 9.4 fL (9.4-12.3); Monocytes Absolute Auto 0.5 X10*3/uL (0.1-1.2); Monocytes Percent Auto 6.1 % (2-11); Neutrophils Absolute Auto 5.2 x10*3/uL (2.0-8.3); Neutrophils Percent Auto 59.2 % (45-73); Platelet Count 321 X10*3/uL (160-400); Red Blood Count 4.53 X10*6/uL (4.20-5.50); Red Cell Distribution Width 12.8 % (11.0-16.0); White Blood Count 8.7 X10*3/uL (4.8-10.8)
[2023-08-07 15:44] LABS: Influenza A PCR NEGATIVE (Negative); Influenza B PCR NEGATIVE (Negative); Resp Syncy Virus RNA Qual PCR NEGATIVE (Negative); SARS COV2 PCR INHOUSE NEGATIVE (Negative)
== END 2023-08-07 09:56 | disposition home or self-care (01) ==
LOC: HO.HMGCX 09:55
PROVIDERS: PCP Internal Medicine; Visit Provider Nurse Practitioner Primary Care
DX: J06.9 Acute upper respiratory infection, unspecified (principal); Z13.83 Encounter for screening for respiratory disorder NEC; Z91.89 Other specified personal risk factors, not elsewhere classified; Z13.0 Encounter for screening for diseases of the blood and blood-forming organs and certain disorders involving the immune mechanism
CPT/HCPCS: 0241U; 36415; 71046; 80053; 85025

== ENCOUNTER 2023-08-20 09:10 | Outpatient (AMB) | payer OTHER, SELFPAY ==
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
[2023-08-20 09:40] VITALS: BP 114/78; PULSE 82; O2SAT 96
== END 2023-08-20 10:40 | disposition home or self-care (01) ==
PROVIDERS: PCP Internal Medicine; Visit Provider Internal Medicine
DX: H61.001 Unspecified perichondritis of right external ear (principal); S46.819A Strain of other muscles, fascia and tendons at shoulder and upper arm level, unspecified arm, initial encounter
CPT/HCPCS: 99214

== ENCOUNTER 2023-08-24 13:00 | Outpatient (AMB) | payer OTHER, SELFPAY ==
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
[2023-08-24 13:14] VITALS: BP 116/70; BMI 33.1
== END 2023-08-24 13:57 | disposition home or self-care (01) ==
PROVIDERS: Visit Provider Advanced Practice Midwife
DX: Z01.419 Encounter for gynecological examination (general) (routine) without abnormal findings (principal)
CPT/HCPCS: 99396

== ENCOUNTER → 2023-08-24 13:00 | Outpatient (BNVA) | payer OTHER, SELFPAY | PROVIDERS: Visit Provider Advanced Practice Midwife | DX: Z01.419 Encounter for gynecological examination (general) (routine) without abnormal findings (principal) | CPT/HCPCS: 99396 ==

== ENCOUNTER 2023-09-07 14:16 | Outpatient (AMB) | payer OTHER, SELFPAY ==
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
[2023-09-07 14:33] VITALS: BP 110/81; BMI 32.9
== END 2023-09-07 14:59 | disposition home or self-care (01) ==
PROVIDERS: PCP Internal Medicine; Visit Provider Nurse Practitioner Family
DX: K21.9 Gastro-esophageal reflux disease without esophagitis (principal); R19.6 Halitosis; Z86.19 Personal history of other infectious and parasitic diseases; R14.0 Abdominal distension (gaseous); Z12.11 Encounter for screening for malignant neoplasm of colon
CPT/HCPCS: 99214

== ENCOUNTER → 2023-09-07 14:16 | Outpatient (BNVA) | payer OTHER, SELFPAY | PROVIDERS: PCP Internal Medicine; Visit Provider Nurse Practitioner Family | DX: K21.9 Gastro-esophageal reflux disease without esophagitis (principal); R19.6 Halitosis; R14.0 Abdominal distension (gaseous); A04.8 Other specified bacterial intestinal infections; Z86.19 Personal history of other infectious and parasitic diseases | CPT/HCPCS: 99212 ==

== ENCOUNTER 2023-11-02 10:12 | Outpatient (AMB) | payer OTHER, SELFPAY ==
[2023-11-02 11:05] VITALS: BP 120/74; PULSE 86; TEMP 37; O2SAT 98; BMI 30.9
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
== END 2023-11-02 11:38 | disposition home or self-care (01) ==
PROVIDERS: PCP Internal Medicine; Visit Provider Nurse Practitioner Family
DX: R11.2 Nausea with vomiting, unspecified (principal); R19.7 Diarrhea, unspecified
CPT/HCPCS: 99213; S0119

== ENCOUNTER 2023-11-07 13:05 | Outpatient (REF) | payer OTHER, SELFPAY ==
--- NOTE | ~2023-11-07 | MM_ITS ---
EXAMINATION: MM SCREENING DIGITAL BREAST TOMOSYNTHESIS, BILATERAL CLINICAL INFORMATION: Screening. Asymptomatic. Prior remote reduction mammoplasty, 2005. COMPARISON: Mammography: 10/02/2022, 09/26/2021, 03/30/2020, 09/04/2018, 08/15/2017, 05/18/2009 TECHNIQUE: Digital breast tomosynthesis is performed in both the craniocaudal and mediolateral oblique views along with computer-aided detection (CAD). Synthesized 2D images are generated from the tomosynthesis. FINDINGS: The breasts are almost entirely fatty (ACR BI-RADS breast composition Category a). Minor bilateral scarring and stable benign coarse dystrophic calcifications are present consistent with prior reduction mammoplasty. There are vascular calcifications. Background stromal markings are unchanged. There is no developing mass, suspicious grouped calcifications, or area of architectural distortion in either breast. There is no axillary abnormality. MM/MM tomosynthesis screening BI IMPRESSION: No mammographic evidence of malignancy. Stable exam. ASSESSMENT: BI-RADS BI-RADS 2 - Benign Findings RECOMMENDATION: Routine annual mammography screening. 1 year F/U This examination should not preclude the clinical evaluation of a suspicious palpable abnormality. This patient's information was entered into a reminder system with a target due date for their next mammogram.
== END 2023-11-07 13:06 | disposition home or self-care (01) ==
LOC: HO.MAMMO 13:05
PROVIDERS: PCP Internal Medicine; Visit Provider Internal Medicine
DX: Z12.31 Encounter for screening mammogram for malignant neoplasm of breast (principal)
CPT/HCPCS: 77063; 77067

== ENCOUNTER → 2023-11-07 13:30 | Outpatient (BNV) | payer OTHER, SELFPAY | PROVIDERS: PCP Internal Medicine; Visit Provider Radiology Diagnostic Radiology | DX: Z12.31 Encounter for screening mammogram for malignant neoplasm of breast (principal) | CPT/HCPCS: 77063; 77067 ==

== ENCOUNTER 2023-11-13 11:25 | Day surgery (SDC) | payer OTHER, SELFPAY ==
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
[2023-11-13 13:10] VITALS: BMI 32.9
[2023-11-13 13:14] LABS: UPreg QC Valid YES; Urine Pregnancy NEGATIVE (NEGATIVE)
[2023-11-13 13:15] VITALS: BP 120/85; PULSE 101; RESP 18; TEMP 35.6; O2SAT 97
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
[2023-11-13 13:40] LABS: Glucose, Whole Blood 118 mg/dL (60-115)
--- NOTE | 2023-11-13 13:40 | P.OPN-COLO_ITS ---
Colonoscopy Operative Note Operative Note Date of Service: 11/13/23 Narrative: Procedure: Upper endoscopy and colonoscopy Indication: GERD, screening Endoscopist: Merlene Middleton MD Anesthesia Provider: Dr Birgit Thompson Anesthesia type: MAC Instrument: [id number] and [id number] EGD Procedure:?? The procedure, indications, preparation and potential complications were reviewed with the patient, who indicated understanding and gave written informed consent to proceed. Physical exam was performed. The endoscope was introduced through the mouth, and advanced to the 2nd part of the duodenum. The mucosa was carefully examined on slow withdrawal of the endoscope. The patient tolerated the procedure well. There were no immediate c omplications.? EGD Findings:? * Esophagus:? Linear erosions and ulceration measuring <5 mm at the GEJ. The Z line was at 39 cm. Lower esophagus forceps biopsies were obtained for histology. * Stomach:? Erythema erosions and scant heme were noted in body and antrum. Retroflexion was performed in the cardia. Random gastric biopsies were taken to rule out H Pylori infection. * Duodenum:? Ulcerations and edema in the duodenal bulb. Cold forceps biopsies were taken from duodenal bulb and second portion of the duodenum to rule out celiac sprue. Colonoscopy Procedure:? The patient was then turned for the colonoscopy. A digital rectal exam was performed which was normal.? A distal attachment cap was affixed to the tip of the scope and the colonoscope was then inserted through the anus and advanced through the colon and advanced to the cecum at 75 cm and terminal ileum.? Appendiceal orifice and ileocecal valve were identified. Mucosa was carefully examined under high definition white light as the instrument was slowly withdrawn in a retrograde panoramic fashion. Retroflexion was performed in ascending colon and rectum. The procedure was not difficult. The quality of the prep was BBPS: 3+3+2 = adequate Withdrawal time 10 minutes Limitations: No limitations Findings: Mucosa: Normal colon and terminal ileum mucosa. Protruding lesions: * 1 sessile polyp of size 2 mm was noted in the transverse colon. Cold forceps polypectomy was performed. The polyp was completely removed and retrieved. * Large internal hemorrhoids without stigmata of recent bleeding. Excavated lesions: * A few diverticula in sigmoid colon. Impression: 1. Grade A esophagitis (biopsy) 2. Gastritis (biopsy) 3. Duodenitis (biopsy) 4. Normal colon and terminal ileum mucosa 5. 1 polyp removed 6. Diverticulosis 7. Internal hemorrhoids Recommendations:?? * Follow-up path results * Increase omeprazole to twice a day. If minimal response in 4 weeks with BID dosing, can consider switching to esomeprazole or raberprazole. * Repeat colonoscopy for asymptomatic colorectal cancer screening in 7-10 years.
[2023-11-13 14:15] VITALS: BP 107/70; PULSE 93; RESP 18; TEMP 36.3; O2SAT 97
[2023-11-13 14:30] VITALS: BP 109/77; PULSE 88; RESP 16; TEMP 36.3; O2SAT 96
== END 2023-11-13 15:19 | disposition home or self-care (01) ==
PROVIDERS: Nurse Practitioner; PCP Internal Medicine; Visit Provider Internal Medicine
PROC: (CPT 45380; principal; 2023-11-13 13:00)
DX: Z12.11 Encounter for screening for malignant neoplasm of colon (principal); D12.3 Benign neoplasm of transverse colon; K57.30 Diverticulosis of large intestine without perforation or abscess without bleeding; K64.8 Other hemorrhoids; K21.00 Gastro-esophageal reflux disease with esophagitis, without bleeding; K29.70 Gastritis, unspecified, without bleeding; K29.80 Duodenitis without bleeding; R19.6 Halitosis; R14.0 Abdominal distension (gaseous); Z86.19 Personal history of other infectious and parasitic diseases
CPT/HCPCS: 45380; 43239; 81025; 82947; 88305; 88313; 88342; J2704

== ENCOUNTER → 2023-11-13 11:25 | Outpatient (BNV) | payer OTHER, SELFPAY | PROVIDERS: PCP Internal Medicine; Visit Provider Internal Medicine | DX: Z12.11 Encounter for screening for malignant neoplasm of colon (principal); D12.3 Benign neoplasm of transverse colon; K64.8 Other hemorrhoids; K57.30 Diverticulosis of large intestine without perforation or abscess without bleeding; K21.00 Gastro-esophageal reflux disease with esophagitis, without bleeding; K29.70 Gastritis, unspecified, without bleeding; K29.80 Duodenitis without bleeding | CPT/HCPCS: 43239; 45380 ==

== ENCOUNTER 2023-11-27 11:16 | Outpatient (AMB) | payer OTHER, SELFPAY ==
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
[2023-11-27 11:27] VITALS: BP 114/90; PULSE 82; O2SAT 94; BMI 32.9
== END 2023-11-27 11:46 | disposition home or self-care (01) ==
PROVIDERS: PCP Internal Medicine; Visit Provider Nurse Practitioner Family
DX: K21.9 Gastro-esophageal reflux disease without esophagitis (principal); R19.6 Halitosis; Z86.19 Personal history of other infectious and parasitic diseases; R14.0 Abdominal distension (gaseous); Z98.890 Other specified postprocedural states; D36.9 Benign neoplasm, unspecified site; K29.50 Unspecified chronic gastritis without bleeding; K29.80 Duodenitis without bleeding
CPT/HCPCS: 99214

== ENCOUNTER → 2023-11-27 11:16 | Outpatient (BNVA) | payer OTHER, SELFPAY | PROVIDERS: PCP Internal Medicine; Visit Provider Nurse Practitioner Family | DX: D12.3 Benign neoplasm of transverse colon (principal); K21.9 Gastro-esophageal reflux disease without esophagitis; R19.6 Halitosis; R14.0 Abdominal distension (gaseous); K29.50 Unspecified chronic gastritis without bleeding; K29.80 Duodenitis without bleeding; Z86.19 Personal history of other infectious and parasitic diseases; Z79.899 Other long term (current) drug therapy; Z98.890 Other specified postprocedural states | CPT/HCPCS: 99212 ==

== ENCOUNTER 2024-01-07 00:07 | Emergency (ER) | payer OTHER, SELFPAY ==
--- NOTE | ~2024-01-07 | XR_ITS ---
EXAMINATION: XR CHEST CLINICAL INFORMATION: Shortness of breath COMPARISON: None available. TECHNIQUE: Frontal view of the chest was obtained. FINDINGS: No significant abnormality is noted involving the heart, lungs, mediastinum, bony thorax or soft tissues. XR/XR chest 1V IMPRESSION: Unremarkable examination.
[2024-01-07 00:09] VITALS: BP 128/92; PULSE 118; RESP 26; TEMP 36.4; O2SAT 95; BMI 32.9
--- NOTE | 2024-01-07 00:14 | ECG_ITS ---
Test Reason : SOB Blood Pressure : / mmHG Vent. Rate : 098 BPM Atrial Rate : 098 BPM P-R Int : 150 ms QRS Dur : 070 ms QT Int : 348 ms P-R-T Axes : 040 011 046 degrees QTc Int : 444 ms Normal sinus rhythm Nonspecific ST-T changes Abnormal ECG When compared with ECG of 04-JAN-2023 10:46, Vent. rate has increased BY [address]-T changes present Referred By: Generic ED Physician Electronically Signed By:Camilo Mccormick
[2024-01-07 00:30] VITALS: PULSE 99; RESP 16; O2SAT 96
[2024-01-07 00:42] LABS: MANUAL DIFF FLAG NO
[2024-01-07 00:44] LABS: Basophils Percent Auto 0.5 % (0-2); Eosinophils Absolute Auto 0.3 X10*3/uL (0.0-0.4); Eosinophils Percent Auto 3.1 % (0-4); Hematocrit 38.8 % (37.0-47.0); Hemoglobin 13.3 g/dl (12.0-16.0); Imm Gran Abs Auto 0.02 X10*3/uL (0.00-0.03); Imm Gran Pct Auto 0.3 % (0.0-0.4); Lymphocytes Absolute Auto 2.5 X10*3/uL (1.2-4.9); Lymphocytes Percent Auto 31.4 % (20-40); Mean Corpuscular HGB Conc 34.3 g/dl (31.0-35.0); Mean Corpuscular Hemoglobin 30.4 pg (27.0-33.0); Mean Corpuscular Volume 88.8 fL (80.0-98.0); Monocytes Absolute Auto 0.6 X10*3/uL (0.1-1.2); Monocytes Percent Auto 7.7 % (2-11); Neutrophils Absolute Auto 4.6 x10*3/uL (2.0-8.3); Platelet Count 268 X10*3/uL (160-400); Red Blood Count 4.37 X10*6/uL (4.20-5.50); Red Cell Distribution Width 12.6 % (11.0-16.0)
[2024-01-07 00:57] VITALS: PULSE 100; RESP 22; O2SAT 97
[2024-01-07] MEDS: Albuterol Sulfate 5 MG, Albuterol/Iprat 2.5/0.5MG 3 ML 3 ML INHALE (00:57)
[2024-01-07 00:59] LABS: Anion Gap 13 (12-20); Blood Urea Nitrogen 11 mg/dL (9-16); Calcium 9.4 mg/dL (8.4-10.2); Carbon Dioxide 22 mmol/L (22-29); Chloride 107 mmol/L (96-108); Creatinine Clr Calc Pharmacy 63.2; Estimated Glomerular Filt Rate 53; Glucose Random 187 mg/dL (60-115); Potassium 3.7 mmol/L (3.3-5.1); Sodium 138 mmol/L (135-145)
[2024-01-07 01:06] LABS: Troponin-I High Sensitivity < 2.7 ng/L (<3.5-17.0)
[2024-01-07] MEDS: predniSONE 20 MG TABLET 60 MG PO (01:08)
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
[2024-01-07 01:20] LABS: Influenza A PCR NEGATIVE (Negative); Influenza B PCR NEGATIVE (Negative); Resp Syncy Virus RNA Qual PCR NEGATIVE (Negative); SARS COV2 PCR INHOUSE NEGATIVE (Negative)
[2024-01-07 01:30] VITALS: BP 121/82; PULSE 112; RESP 20; TEMP 37.2; O2SAT 99
== END 2024-01-07 01:31 | disposition home or self-care (01) ==
PROVIDERS: Emergency Provider Emergency Medicine Emergency Medical Services; PCP Internal Medicine
DX: J45.901 Unspecified asthma with (acute) exacerbation (principal); R06.02 Shortness of breath; R94.31 Abnormal electrocardiogram [ECG] [EKG]; Z03.818 Encounter for observation for suspected exposure to other biological agents ruled out; Z79.899 Other long term (current) drug therapy
CPT/HCPCS: 0241U; 36415; 71045; 80048; 84484; 85025; 93005; 94640; 99284

== ENCOUNTER → 2024-01-07 00:14 | Outpatient (BNV) | payer OTHER, SELFPAY | PROVIDERS: Emergency Provider Emergency Medicine Emergency Medical Services; PCP Internal Medicine; Visit Provider Internal Medicine Cardiovascular Disease | DX: R94.31 Abnormal electrocardiogram [ECG] [EKG] (principal) | CPT/HCPCS: 93010 ==

== ENCOUNTER 2024-01-10 08:57 | Outpatient (AMB) | payer OTHER, SELFPAY ==
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
[2024-01-10 09:08] VITALS: BP 112/80; BMI 32.0
== END 2024-01-10 10:00 | disposition home or self-care (01) ==
PROVIDERS: PCP Internal Medicine; Visit Provider Internal Medicine
DX: Z00.00 Encounter for general adult medical examination without abnormal findings (principal); F33.1 Major depressive disorder, recurrent, moderate; J45.30 Mild persistent asthma, uncomplicated; H53.8 Other visual disturbances; E66.09 Other obesity due to excess calories; Z68.32 Body mass index [BMI] 32.0-32.9, adult
CPT/HCPCS: 96127; 99213; 99396

== ENCOUNTER 2024-01-10 10:06 | Outpatient (REF) | payer OTHER, SELFPAY ==
[2024-01-10 11:20] LABS: Alanine Aminotransferase 54 U/L (0-31); Alkaline Phosphatase 74 U/L (39-117); Anion Gap 9 (12-20); Aspartate Amino Transferase 37 U/L (5-31); Bilirubin Total 0.4 mg/dL (0.0-1.0); Blood Urea Nitrogen 10 mg/dL (9-16); Calcium 8.9 mg/dL (8.4-10.2); Carbon Dioxide 27 mmol/L (22-29); Chloride 108 mmol/L (96-108); Cholesterol 176 mg/dL (<200); Estimated Glomerular Filt Rate > 60; Glucose Fasting 104 mg/dL (60-99); HDL Cholesterol 44 mg/dL (>40); LDL Cholesterol Calculated 109 mg/dL (<100); Potassium 3.4 mmol/L (3.3-5.1); Sodium 141 mmol/L (135-145); Total Protein 7.4 g/dL (6.5-8.0); Triglycerides 117 mg/dL (<150)
== END 2024-01-10 10:07 | disposition home or self-care (01) ==
LOC: HO.LAB 10:06
PROVIDERS: PCP Internal Medicine; Visit Provider Internal Medicine
DX: Z00.00 Encounter for general adult medical examination without abnormal findings (principal)
CPT/HCPCS: 36415; 80053; 80061

== ENCOUNTER 2024-03-10 08:46 | Outpatient (AMB) | payer OTHER, SELFPAY ==
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
[2024-03-10 11:05] VITALS: BP 132/80; PULSE 76; O2SAT 97; BMI 33.0
== END 2024-03-10 12:27 | disposition home or self-care (01) ==
PROVIDERS: PCP Internal Medicine; Visit Provider Registered Nurse
DX: K57.92 Diverticulitis of intestine, part unspecified, without perforation or abscess without bleeding (principal)

== ENCOUNTER → 2024-03-10 08:46 | Outpatient (BNVA) | payer OTHER, SELFPAY | PROVIDERS: PCP Internal Medicine | DX: K57.92 Diverticulitis of intestine, part unspecified, without perforation or abscess without bleeding (principal) | CPT/HCPCS: 99212 ==

== ENCOUNTER 2024-07-08 09:36 | Outpatient (AMB) | payer OTHER, SELFPAY ==
[2024-07-08 12:48] VITALS: BP 112/72; PULSE 101; TEMP 36.4; O2SAT 98
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
== END 2024-07-08 13:29 | disposition home or self-care (01) ==
PROVIDERS: PCP Internal Medicine; Visit Provider Physician Assistant
DX: J06.9 Acute upper respiratory infection, unspecified (principal)

== ENCOUNTER → 2024-07-08 09:36 | Outpatient (BNVA) | payer OTHER, SELFPAY | PROVIDERS: PCP Internal Medicine | DX: J06.9 Acute upper respiratory infection, unspecified (principal) | CPT/HCPCS: 99212 ==

== ENCOUNTER 2024-07-09 10:18 | Outpatient (REF) | payer OTHER, SELFPAY ==
[2024-07-09 11:38] LABS: Influenza A PCR NEGATIVE (Negative); Influenza B PCR NEGATIVE (Negative); Resp Syncy Virus RNA Qual PCR NEGATIVE (Negative); SARS COV2 PCR INHOUSE POSITIVE (Negative)
== END 2024-07-09 10:19 | disposition home or self-care (01) ==
LOC: HO.LNP 10:18
PROVIDERS: Visit Provider Physician Assistant
DX: J06.9 Acute upper respiratory infection, unspecified (principal)
CPT/HCPCS: 0241U

== ENCOUNTER 2024-07-31 16:30 | Outpatient (AMB) | payer OTHER, SELFPAY ==
[2024-07-31 16:33] VITALS: BP 108/70; PULSE 90; O2SAT 99; BMI 30.7
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
== END 2024-07-31 17:12 | disposition home or self-care (01) ==
PROVIDERS: PCP Internal Medicine; Visit Provider Internal Medicine
DX: S89.92XA Unspecified injury of left lower leg, initial encounter (principal); F33.1 Major depressive disorder, recurrent, moderate; Z23 Encounter for immunization

== ENCOUNTER → 2024-07-31 16:30 | Outpatient (BNVA) | payer OTHER, SELFPAY | PROVIDERS: PCP Internal Medicine; Visit Provider Internal Medicine | DX: S89.92XA Unspecified injury of left lower leg, initial encounter (principal); F33.1 Major depressive disorder, recurrent, moderate | CPT/HCPCS: 90471; 96127; 99212 ==

== ENCOUNTER 2024-08-08 10:22 | Outpatient (REF) | payer OTHER, SELFPAY ==
--- NOTE | ~2024-08-08 | XR_ITS ---
EXAMINATION: XR KNEE 1-2 VIEWS LEFT HISTORY: S89.92XA - Unspecified injury of left lower leg, initial encounter COMPARISON: There are no prior studies available for comparison. FINDINGS: AP and lateral views of the left knee are submitted. Osseous mineralization is normal. There is no fracture or dislocation. The joint spaces are preserved. The soft tissues are unremarkable. There is no joint effusion. XR/XR knee LT 2V IMPRESSION: Unremarkable examination of the left knee. Electronically signed by: Carson Meek MD 08/11/2024 10:10 AM [facility]
== END 2024-08-08 10:23 | disposition home or self-care (01) ==
LOC: HO.XRAY 10:22
PROVIDERS: PCP Internal Medicine; Visit Provider Internal Medicine
DX: S89.92XA Unspecified injury of left lower leg, initial encounter (principal)
CPT/HCPCS: 73560

== ENCOUNTER → 2024-08-08 10:30 | Outpatient (BNV) | payer OTHER, SELFPAY | PROVIDERS: PCP Internal Medicine; Visit Provider Radiology Diagnostic Radiology | DX: S89.92XA Unspecified injury of left lower leg, initial encounter (principal) | CPT/HCPCS: 73560 ==

== ENCOUNTER 2024-11-20 17:08 | Outpatient (AMB) | payer OTHER, SELFPAY ==
[2024-11-20 17:24] VITALS: BP 120/82; BMI 34.1
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
== END 2024-11-20 17:51 | disposition home or self-care (01) ==
LOC: HO.HMCH 17:09
PROVIDERS: PCP Internal Medicine; Visit Provider Internal Medicine
DX: M25.521 Pain in right elbow (principal); F33.1 Major depressive disorder, recurrent, moderate; K21.9 Gastro-esophageal reflux disease without esophagitis; F41.1 Generalized anxiety disorder

== ENCOUNTER → 2024-11-20 17:08 | Outpatient (BNVA) | payer OTHER, SELFPAY | PROVIDERS: PCP Internal Medicine; Visit Provider Internal Medicine | DX: K21.9 Gastro-esophageal reflux disease without esophagitis (principal); E66.9 Obesity, unspecified; M25.521 Pain in right elbow; F33.1 Major depressive disorder, recurrent, moderate; F41.1 Generalized anxiety disorder; E66.09 Other obesity due to excess calories; E78.5 Hyperlipidemia, unspecified; D64.9 Anemia, unspecified; E55.9 Vitamin D deficiency, unspecified; Z68.34 Body mass index [BMI] 34.0-34.9, adult; Z79.899 Other long term (current) drug therapy | CPT/HCPCS: 96127; 99212 ==

== ENCOUNTER 2024-12-15 15:33 | Outpatient (REF) | payer OTHER, SELFPAY | END 2024-12-15 15:34 | disposition home or self-care (01) | LOC: HO.MAMMO 15:33 | PROVIDERS: PCP Internal Medicine; Visit Provider Internal Medicine | DX: Z13.89 Encounter for screening for other disorder (principal) ==